=== PATIENT | female | born 1960 | race Caucasian/White ===

== ENCOUNTER 2016-04-13 09:21 | Inpatient (IN) | payer OTHER ==
--- NOTE | 2016-03-21 10:00 | HISTORY & PHYSICAL EXAMINATION ---
DATE OF ADMISSION: 04/13/2016 PROCEDURE: Left knee replacement. HISTORY OF PRESENT ILLNESS: Maria Antonia is a pleasant 56-year-old female who presents for preoperative evaluation prior to left knee replacement. She states she has been having pain in this knee for several years now which has gradually worsened and now gotten to the point it is affecting her daily activities including walking, standing, going up and down steps. She has tried oral anti-inflammatories including Aleve and ibuprofen with no relief. She has also tried Synvisc-One injection with no relief. She discussed further care with Dr. Lynch, and after discussing further treatment options, would like to proceed with a left knee replacement. PAST MEDICAL HISTORY: She denies a history of hypertension, high cholesterol, diabetes, thyroid, or bleeding or clotting disorders. ALLERGIES: SULFA CAUSES A RASH. CURRENT MEDICATIONS: 1. Ibuprofen 800 mg p.o. t.i.d. with food. 2. Glucosamine and chondroitin. PAST SURGICAL HISTORY: None. FAMILY HISTORY: Noncontributory. SOCIAL HISTORY: The patient is , lives in a 2-story home, works as a solar crew member/dog training. REVIEW OF SYSTEMS: Otherwise negative. Please see HPI for pertinent positives. PHYSICAL EXAMINATION: GENERAL: Tiago 56-year-old female in no acute distress, alert and oriented x3. She is 5 foot 5, weighs 174 pounds. VITAL SIGNS: Blood pressure is 106/74, pulse 74, O2 sats 98%. HEENT: Normocephalic, atraumatic. CARDIAC: Regular rate and rhythm. No murmurs or gallops appreciated. Resting pulse 74 beats per minute. LUNGS: Clear to auscultation without rales or wheeze bilaterally. ABDOMEN: Soft, nontender. Bowel sounds present. EXTREMITIES: Attention to her left lower extremity, she is neurovascularly intact. Calves are soft and nontender. DP pulse +2. Demonstrates good quad tone. Straight leg raise without lag. No erythema or warmth. Has mild effusion. Has positive crepitation with motion. Range of motion is 0/5/120. Overall has varus alignment. IMAGING: Reviewed of left knee showed findings consistent with degenerative joint disease including joint space narrowing, subchondral sclerosis, osteophyte as noted. She has complete loss of joint space of the medial compartment. IMPRESSION: Left knee degenerative joint disease. PLAN: Further care discussed with the patient. At this point in time, she has failed conservative measures and would like to proceed with left knee replacement. We will place on aspirin 81 mg p.o. b.i.d. for a month postop. Would like to be discharged home with home health physical therapy.
[2016-03-21 11:51] VITALS: BMI 29.0
--- NOTE | 2016-03-21 12:33 | PAT Medication Instructions ---
Service Date Mar 21, 2016. Current Home Medication List Garcinia Cambogia-Chromium (Garcinia Cambogia), 1 TAB PO QAM Tismpintoto-Fbviatwwgbd-Nyb C- (Glucosamine Chondroitin), 1,500 MG PO QAM Ibuprofen (Advil), 400 MG PO PRN Multiple Vitamin (Multi Vitamin), 1 TAB PO QAM Oxybutynin Chloride (Ditropan Xl), 1 TAB PO QAM Phentermine Hcl (Adipex P), 0.5 TAB PO QAM Probiotic Product (Probiotic), 1 TAB PO QAM Turmeric (Curcuma Longa) (Turmeric), 1,000 MG PO QAM [Calcium], 2 TAB PO QAM [Iron], 65 MG PO Q2D Medication Instructions For Your Scheduled Surgery - Hold the following medications 2 weeks prior to surgery: Turmeric (Curcuma Longa) (Turmeric), 1,000 MG PO QAM Gftikponsbt-Wkrltkoxwnr-Sgq C- (Glucosamine Chondroitin), 1,500 MG PO QAM - Check with surgeon for instructions: Ibuprofen (Advil), 400 MG PO PRN - Take the following medications the morning of surgery with a sip of water: [Iron], 65 MG PO Q2D [Calcium], 2 TAB PO QAM Probiotic Product (Probiotic), 1 TAB PO QAM Oxybutynin Chloride (Ditropan Xl), 1 TAB PO QAM Multiple Vitamin (Multi Vitamin), 1 TAB PO QAM Garcinia Cambogia-Chromium (Garcinia Cambogia), 1 TAB PO QAM Phentermine Hcl (Adipex P), 0.5 TAB PO QAM If you have any questions please call us at [phone] (Yazmin Saenz PA-C) or [phone] or [phone]
--- NOTE | 2016-03-21 13:03 | DIAGNOSTIC IMAGING REPORT ---
CHEST PREADMISSION(PA/LAT) CLINICAL HISTORY: Preoperative evaluation. COMPARISON STUDY: No previous studies for comparison. FINDINGS: Lung volumes are normal. Lungs are clear. There is no pneumothorax or pleural effusion. Cardiac size is normal. Mediastinal contours are normal. There is no evidence of pulmonary edema. There is mild S-shaped curvature of the thoracolumbar spine. IMPRESSION: No acute cardiopulmonary findings. Electronically signed by: Daniel Porter M.D. 03/21/2016 1:01 PM Dictated Date/Time: 03/21/2016 1:00 PM
[2016-03-21 13:12] LABS: BASO % 0.8 %; BASO ABS # 0.04 K/uL (0-0.2); COMPLETE YES; EOS % 0.9 %; IG% 0.4 %; LYMPH % 47.5 %; LYMPH ABS # 2.52 K/uL (1.2-3.4); MEAN CELL VOLUME 95.2 fL (80-100); MEAN CORPUSCULAR HEMOGLOBIN 32.3 pg (25-34); MEAN CORPUSCULAR HGB CONC 33.9 g/dl (32-36); MEAN PLATELET VOLUME 10.3 fL (7.4-10.4); MONO % 6.4 %; PLATELET COUNT 305 K/uL (130-400); RED BLOOD COUNT 3.99 M/uL (4.2-5.4); WHITE BLOOD COUNT 5.31 K/uL (4.8-10.8)
[2016-03-21 13:19] LABS: URINE APPEARANCE CLEAR (CLEAR); URINE BILIRUBIN NEG (NEG); URINE COLOR YELLOW; URINE NITRITE NEG (NEG); URINE PH 7.5 (4.5-7.5); URINE SPECIFIC GRAVITY 1.006 (1.000-1.030); UROBILINOGEN NEG (NEG)
[2016-03-21 13:21] LABS: MANUAL MICROSCOPIC REQUIRED? NO; REVIEW REQ? NO
[2016-03-21 13:32] LABS: ESTIMATED AVERAGE GLUCOSE 111 mg/dl; HA1C FLAG Normal (Normal)
[2016-03-21 13:36] LABS: PARTIAL THROMBOPLASTIN RATIO 1.1; PROTHROMBIN TIME (PATIENT) 10.7 SECONDS (9.0-12.0)
[2016-03-21 13:42] LABS: CALCIUM 9.4 mg/dl (8.5-10.1); CREATININE 0.59 mg/dl (0.60-1.20); POTASSIUM 4.5 mmol/L (3.5-5.1)
[~2016-04-13] VITALS: Ht 165.1 cm; Wt 79.2 kg
[2016-04-13] MEDS: TRANEXAMIC ACID INJ 1,000 MG in SODIUM CHLORIDE 0.9% 100ML 100 ML IV SCH ×2 (06:30→10:24)
--- NOTE | 2016-04-13 07:10 | History & Physical Bridge Note ---
H&P Re-Evaluation Bridge Note: I have examined the patient, reviewed the History & Physical and in the interval since the performance of the History & Physical I have noted the following changes of clinical significance: No changes noted
[~2016-04-13 09:21] MED LIST: ACETAMINOPHEN 500 MG TAB PO SCH; ALPR0.25 PO; BUPIVACAINE 0.5 % 5 MG/1 ML PF 10ML VIAL ONE; CALC-51 PO; CEFAZOLIN 1000MG/55 ML D5W 55 ML IV SCH; CeleBREX 200 MG CAP PO SCH; DEXAMETHASONE 4 MG TAB PO SCH; FAMOTIDINE 20 MG TAB PO SCH; GABAPENTIN 300 MG CAP PO SCH; GARC1TAB PO; GLUCTAB7 PO; IBUP-1050 PO; IRON PO; LACTATED RINGER'S 1000ML IV SCH; METOCLOPRAMIDE HCL 10 MG TAB PO SCH; MISCCAP80 PO; MULT-1027 PO; OXYB15TA12 PO; PHEN10CA3 PO; TURM500T PO
[2016-04-13 09:55] VITALS: BP 123/68; PULSE 77; TEMP 36.8; O2SAT 98; Ht 165.1 cm; Wt 79.2 kg
[2016-04-13] MEDS ORDERED: MIDAZOLAM HCL 1 MG/ML 2ML VIAL ONE ×2 (10:08)
[2016-04-13] MEDS ORDERED: FENTANYL CITRATE INJ 50 MCG/1 ML 2 ML VIAL ONE (10:09)
[2016-04-13] MEDS ORDERED: NURSING VERBAL MED ORDER STA (10:49)
[2016-04-13] MEDS ORDERED: VANCOMYCIN INJ 500 MG in SODIUM CHLORIDE 0.9% 250ML 250 ML IV SCH (11:00)
[2016-04-13] MEDS ORDERED: ROPIVACAINE 5MG/ML 30 ML 150 MG, BUPIVACAINE/EPINEPHR 0.5% MPF 30 ML, KETOROLAC TROMETH... INFIL SCH ×7 (12:00)
[2016-04-13] MEDS ORDERED: ONDANSETRON INJ 2 MG/ML 2 ML VIAL IV PRN ×2 (12:15→13:45)
[2016-04-13] MEDS ORDERED: ATROPINE SULFATE 0.1 MG/ML 5ML SYR IV PRN (12:15)
[2016-04-13] MEDS ORDERED: FENTANYL CITRATE INJ 50 MCG/1 ML 2 ML VIAL IV PRN (12:15)
[2016-04-13] MEDS ORDERED: EpHEDrine SULFATE INJ 50 MG/ML AMP IV PRN (12:15)
[2016-04-13] MEDS ORDERED: PROPOFOL IV EMULSION 10 MG/ML 20 ML VIAL IV ONE (12:19)
[2016-04-13] MEDS ORDERED: LIDOCAINE HCL 2% 2 ML VIAL (20MG/ML) ONE (12:19)
[2016-04-13] MEDS ORDERED: BACITRACIN 50000 UNIT VIAL IR ONE (12:33)
[2016-04-13] MEDS ORDERED: POVIDONE-IODINE OP SOLN 30 ML BTL TOP ONE (12:33)
--- NOTE | 2016-04-13 12:57 | [facility] Post Operative Brief Note ---
Immediate Operative Summary Operative Date Apr 13, 2016. Pre-Operative Diagnosis Left knee degenerative joint disease Post-Operative Diagnosis Left knee degenerative joint disease Procedure(s) Performed Left Total Knee Arthroplasty Cemented Surgeon Dr. You Lynch Residential Living Assistant Surgeon(s) Beau Hunt PA-C Estimated Blood Loss 5ML Findings severe djd lt knee Specimens A. Left knee bone and tissue Complication(s) None Disposition Recovery Room / PACU
--- NOTE | 2016-04-13 13:15 | OPERATIVE REPORT ---
DATE OF OPERATION: 04/13/2016 PREOPERATIVE DIAGNOSIS: Severe end-stage degenerative joint disease with varus alignment left knee. POSTOPERATIVE DIAGNOSIS: Same. PROCEDURE: Left total knee arthroplasty utilizing Pradhan \T\ Nephew patient matched Journey II block knee size 5 femur, 4 tibia, 12 poly, 29 oval patella. SURGEON: Dr. Lynch. CLINICAL EXERCISE PHYSIOLOGIST: Beau Hunt PA-C who was necessary for prepping, draping, retraction, and wound closure of subQ, deep fascia and skin and was necessary for the case. HISTORY OF PRESENT ILLNESS: The patient presents as a 56-year-old white female being seen and evaluated with complaints of severe ongoing DJD about her left knee. She has been nonresponsive to conservative therapy including physical therapy, anti-inflammatories, relative rest, activity modification, injections and presents for total knee arthroplasty. OPERATION AND FINDINGS: PROCEDURE: The patient was properly prepped and draped in supine position for total knee arthroplasty after identifying the appropriate surgical site. An anterior midline incision was made through the subcutaneous tissues down to the region of the extensor mechanism. A medial parapatellar incision was subsequently made. Meticulous hemostasis was obtained and performed at all times. The patella having been subluxed lateralward, medial and lateral meniscal remnants were excised. The patellar cut was then initially made and was sized to the appropriate size. After subluxing the tibia forward the appropriate meniscal fragments having been removed the distal femur was then cut first utilizing a Pradhan \T\ Nephew block. The distal femoral cuts and chamfer cuts were all made under direct visualization and the proximal tibial osteotomy cut was also made utilizing Pradhan \T\ Nephew blocks and checked with an extramedullary guide. The appropriate trial components on the femur and tibia were placed. Appropriate trial spacers were used to check flexion and extension gaps. With flexion and extension gaps being equal, the components were then subsequently after thorough irrigation and debridement lavage components were then subsequently cemented in the following order: femur, tibia and patella. Exparel was used for intraoperative anesthesia, the medial parapatellar incision was closed utilizing #1 Vicryl, subQ was closed with 2-0 Vicryl, skin was closed with skin clips. A sterile compression dressing was placed. The patient was taken to recovery room in stable condition. Due to the complex nature of the procedure, the entire surgery was performed with the operational assistance of Beau Maney, PA-C. The acute care assistant, under direct supervision, was involved in the actual performance of all aspects of the surgical procedure including hemostasis, tissue retraction and incision, instrument management, patient positioning, and wound closure. I attest to the content of the Intraoperative Record and any orders documented therein. Any exceptio ns are noted below.
[2016-04-13] MEDS ORDERED: BISACODYL 10 MG SUPP PR PRN (13:45)
[2016-04-13] MEDS ORDERED: MAGNESIUM HYDROXIDE SUSP 30 ML UDC PO PRN (13:45)
[2016-04-13] MEDS ORDERED: SOD PHOSPHATE/SOD BIPHOSPHATE ENEMA 132 ML BTL PR PRN (13:45)
[2016-04-13] MEDS ORDERED: ACETAMINOPHEN 325 MG TAB PO PRN (13:45)
[2016-04-13] MEDS ORDERED: MoRPHine SULFATE 2 MG/ML CARP IV PRN ×2 (13:45→14:45)
[2016-04-13] MEDS ORDERED: NON-FORMULARY MEDICATION ([Iron] 65 MG) PO SCH (13:45)
[2016-04-13] MEDS ORDERED: ALUMINUM/MAGNESIUM/SIMETH (MAALOX MAX) 30 ML UDC PO PRN (13:45)
--- NOTE | 2016-04-13 14:39 | DIAGNOSTIC IMAGING REPORT ---
LEFT KNEE 2 VIEWS History: Left total knee arthroplasty. Degenerative arthritis. Postop. FINDINGS: The patient is status post a left total knee arthroplasty. The hardware is intact. No fracture or dislocation. Surgical drains are in place. IMPRESSION: Left total knee arthroplasty. No evidence for hardware complication. Electronically signed by: Bishop Garza M.D. 04/13/2016 2:38 PM Dictated Date/Time: 04/13/2016 2:37 PM
[2016-04-13] MEDS ORDERED: MoRPHine SULFATE 10 MG/ML CARP/VIAL IV PRN (14:45)
[2016-04-13] MEDS ORDERED: MoRPHine SULFATE 4 MG/ML 1 ML CARP\\VIAL IV PRN (14:45)
--- NOTE | 2016-04-13 14:50 | Anesthesiology Progress Note ---
Anesthesia Post Op Note Date & Time Apr 13, 2016 at 14:50 Vital Signs Pain Intensity: 0 Vital Signs Past 12 Hours Date Time Temp Pulse Resp B/P Pulse Ox O2 Delivery O2 Flow Rate FiO2 04/13/16 14:13 100/68 04/13/16 14:10 68 16 100 04/13/16 14:10 68 16 04/13/16 14:08 99/66 04/13/16 14:05 69 13 100 04/13/16 14:05 68 13 04/13/16 14:03 110/68 04/13/16 14:00 71 19 04/13/16 14:00 70 19 100 04/13/16 13:58 106/67 04/13/16 13:55 69 11 04/13/16 13:55 68 11 100 04/13/16 13:53 98/67 04/13/16 13:50 72 14 04/13/16 13:50 73 14 100 04/13/16 13:48 107/64 04/13/16 13:45 84 19 04/13/16 13:45 88 19 100 04/13/16 13:43 107/70 04/13/16 13:40 84 11 99 04/13/16 13:40 82 11 04/13/16 13:38 112/67 04/13/16 13:35 76 17 99 04/13/16 13:35 75 17 04/13/16 13:33 111/71 04/13/16 13:31 117/72 04/13/16 13:30 36.4 83 16 117/72 96 Nasal Cannula 3 04/13/16 09:55 36.8 77 20 123/68 98 Room Air Notes Mental Status: alert / awake / arousable, participated in evaluation Pt Amnestic to Procedure: Yes Nausea / Vomiting: adequately controlled Pain: adequately controlled Airway Patency, RR, SpO2: stable & adequate BP & HR: stable & adequate Hydration State: stable & adequate Neuraxial Anesthesia: was administered, sensory block is resolving Anesthetic Complications: no major complications apparent
[2016-04-13 15:30] VITALS: BP_SYST 118; BP_SYST 99; BP_DIAS 64; BP_DIAS 75; PULSE 76; PULSE 82; TEMP 36.4; TEMP 36.6; O2SAT 97
[2016-04-13 16:03] VITALS: BP 108/61; PULSE 70; TEMP 36.5; O2SAT 98
[2016-04-13 16:31] VITALS: BP 93/60; PULSE 78; TEMP 36.4; O2SAT 98
[2016-04-13] MEDS: D5W AND 1/2NSS + 20MEQ KCL 1,000 ML IV SCH (16:53)
[2016-04-13] MEDS: FERROUS GLUCONATE 324 MG TAB PO SCH (17:33)
[2016-04-13 19:39] VITALS: BP 98/63; PULSE 81; TEMP 36.5; O2SAT 95
[2016-04-13] MEDS: SENNA 8.6 MG TAB PO SCH (20:57)
[2016-04-13] MEDS: ASPIRIN 81 MG ECTAB PO SCH (20:58)
[2016-04-13] MEDS: OXYCODONE HCL 10 MG TABCR (OXYCONTIN) PO SCH (20:58)
[2016-04-13] MEDS: ALPRAZOLAM 0.25 MG TAB PO SCH (20:58)
[2016-04-13] MEDS: DOCUSATE SODIUM 100 MG CAP PO SCH (20:59)
[2016-04-13 22:43] VITALS: BP 98/65; PULSE 77; TEMP 36.6; O2SAT 94
[2016-04-13] MEDS ORDERED: VANCOMYCIN INJ 1,200 MG in SODIUM CHLORIDE 0.9% 250ML 250 ML IV ONE (23:00)
[2016-04-14] VITALS (11 sets, daily range): BP systolic 85–107; BP diastolic 52–71; PULSE 73–79; TEMP 36.6–37; O2SAT 94–97
[2016-04-14] MEDS: OXYCODONE HCL IR 5 MG TAB (IMMEDIATE RELEASE) PO PRN ×3 (02:38→12:40)
[2016-04-14] MEDS: D5W AND 1/2NSS + 20MEQ KCL 1,000 ML IV SCH ×2 (02:38→12:40)
[2016-04-14 07:39] LABS: HEMATOCRIT 31.2 % (37-47); MEAN CELL VOLUME 95.4 fL (80-100); MEAN CORPUSCULAR HEMOGLOBIN 31.5 pg (25-34); MEAN PLATELET VOLUME 9.9 fL (7.4-10.4); PLATELET COUNT 225 K/uL (130-400); RED BLOOD COUNT 3.27 M/uL (4.2-5.4)
--- NOTE | 2016-04-14 07:51 | Orthopedic Progress Note ---
Orthopedic Progress Note Date of Service Apr 14, 2016. Subjective Post OP Day: 1 Reports: feeling well, Denies: SOB, calf pain, chest pain, light headedness, nausea / vomiting Objective calves soft nontender, N/V intact, dressing C/D/I, A&O x3, toes mobile, hemovac drainage (275ml latest shift) Date Time Temp Pulse Resp B/P Pulse Ox O2 Delivery O2 Flow Rate FiO2 04/14/16 03:20 94/53 04/14/16 03:13 37.0 78 16 85/52 95 Room Air 04/13/16 23:47 Room Air 04/13/16 22:43 36.6 77 16 98/65 94 Room Air 04/13/16 19:39 36.5 81 18 98/63 95 Room Air 04/13/16 16:31 36.4 78 18 93/60 98 Nasal Cannula 3.0 04/13/16 16:03 36.5 70 16 108/61 98 Nasal Cannula 3.0 04/13/16 15:30 97 Nasal Cannula 3.0 04/13/16 15:30 97 Nasal Cannula 3.0 04/13/16 15:30 36.4 76 16 99/64 97 Room Air 04/13/16 15:30 36.6 82 16 118/75 97 Nasal Cannula 3.0 04/13/16 15:14 80 04/13/16 15:14 79 16 100 04/13/16 15:13 110/66 04/13/16 15:09 79 16 04/13/16 15:09 77 16 100 04/13/16 15:08 107/71 04/13/16 15:04 74 11 04/13/16 15:04 75 11 100 04/13/16 15:03 106/63 04/13/16 14:59 69 13 100 04/13/16 14:59 70 13 04/13/16 14:58 105/64 04/13/16 14:54 68 13 04/13/16 14:54 67 13 100 04/13/16 14:53 105/61 04/13/16 14:49 70 17 100 04/13/16 14:49 67 17 04/13/16 14:48 104/67 04/13/16 14:44 71 14 04/13/16 14:44 74 14 100 04/13/16 14:43 93/74 04/13/16 14:39 67 16 04/13/16 14:39 66 16 100 04/13/16 14:38 108/69 04/13/16 14:34 66 16 04/13/16 14:34 67 16 100 04/13/16 14:33 104/68 04/13/16 14:29 67 16 100 04/13/16 14:29 66 16 04/13/16 14:28 106/69 04/13/16 14:24 68 18 100 04/13/16 14:24 69 18 04/13/16 14:23 117/69 04/13/16 14:19 68 13 100 04/13/16 14:19 69 13 04/13/16 14:18 100/66 04/13/16 14:14 65 15 100 04/13/16 14:14 65 15 04/13/16 14:13 100/68 04/13/16 14:10 68 16 100 04/13/16 14:10 68 16 04/13/16 14:08 99/66 04/13/16 14:05 69 13 100 04/13/16 14:05 68 13 04/13/16 14:03 110/68 04/13/16 14:00 71 19 04/13/16 14:00 70 19 100 04/13/16 13:58 106/67 04/13/16 13:55 69 11 04/13/16 13:55 68 11 100 04/13/16 13:53 98/67 04/13/16 13:50 72 14 04/13/16 13:50 73 14 100 04/13/16 13:48 107/64 04/13/16 13:45 84 19 04/13/16 13:45 88 19 100 04/13/16 13:43 107/70 04/13/16 13:40 84 11 99 04/13/16 13:40 82 11 04/13/16 13:38 112/67 04/13/16 13:35 76 17 99 04/13/16 13:35 75 17 04/13/16 13:33 111/71 04/13/16 13:31 117/72 04/13/16 13:30 36.4 83 16 117/72 96 Nasal Cannula 3 04/13/16 09:55 36.8 77 20 123/68 98 Room Air Laboratory Results 24 Hours: Test 04/14/16 07:12 04/14/16 07:21 Hematocrit 31.2 % Hemoglobin 10.3 g/dL Assessment & Plan Assessment: POD 1 s/p Right TKA Plan: PT/OT Planning for home with Inhouse Planning Pain Management: Oxycontin, Morphine, Oxy IR DVT Prophylaxis: TEDs, SCDs, ASA Discharge Planning Discharge Planning: home with home health Pain Management: Oxycontin, Oxy IR DVT Prophylaxis: TEDs, ASA Therapy: Physical Therapy
[2016-04-14] MEDS: PANTOprazole SOD 40 MG TAB PO SCH (08:04)
[2016-04-14] MEDS: OXYCODONE HCL 10 MG TABCR (OXYCONTIN) PO SCH (08:04)
[2016-04-14] MEDS: DOCUSATE SODIUM 100 MG CAP PO SCH ×2 (08:04→20:43)
[2016-04-14] MEDS: LACTOBACILLUS ACIDOPHILUS (FLORANEX) TAB PO SCH (08:05)
[2016-04-14] MEDS: ASPIRIN 81 MG ECTAB PO SCH ×2 (08:05→20:43)
[2016-04-14] MEDS: MULTIVITAMIN TAB PO SCH (08:05)
[2016-04-14] MEDS: OXYBUTYNIN CHLORIDE 5 MG TABCR PO SCH (08:05)
[2016-04-14] MEDS: FERROUS GLUCONATE 324 MG TAB PO SCH ×3 (08:05→17:45)
[2016-04-14] MEDS: CALCIUM CARBONATE 1250MG TAB PO SCH (08:06)
[2016-04-14 08:11] LABS: BUN/CREATININE RATIO 16.4 (10-20); CALCIUM 7.9 mg/dl (8.5-10.1); CREATININE 0.67 mg/dl (0.60-1.20); POTASSIUM 4.4 mmol/L (3.5-5.1)
--- NOTE | 2016-04-14 09:41 | Anesthesiology Progress Note ---
Anesthesia Post Op Note Date & Time Apr 14, 2016 at 09:40 Vital Signs Pain Intensity: 7.0 Vital Signs Past 12 Hours Date Time Temp Pulse Resp B/P Pulse Ox O2 Delivery O2 Flow Rate FiO2 04/14/16 03:20 94/53 04/14/16 03:13 37.0 78 16 85/52 95 Room Air 04/13/16 23:47 Room Air 04/13/16 22:43 36.6 77 16 98/65 94 Room Air Notes Mental Status: alert / awake / arousable, participated in evaluation Pt Amnestic to Procedure: Yes Nausea / Vomiting: adequately controlled Pain: adequately controlled Airway Patency, RR, SpO2: stable & adequate BP & HR: stable & adequate Hydration State: stable & adequate Neuraxial Anesthesia: sensory block resolved Anesthetic Complications: no major complications apparent
--- NOTE | 2016-04-14 14:50 | Discharge Instructions ---
Discharge Instructions Admission Reason for Admission: Left Knee Osteoarthritis Discharge Discharge Diagnosis / Problem: Left Knee Djd Discharge Goals Goal(s): Decrease discomfort, Improve function Activity Recommendations Activity Limitations: per Instructions/Follow-up section Weightbearing Status: Left weightbearing (as tolerated) . Instructions / Follow-Up Instructions / Follow-Up ACTIVITY RECOMMENDATIONS: SELF CARE INSTRUCTIONS AFTER TOTAL KNEE REPLACEMENT A. You may need to continue a physical therapy program after discharge from the hospital. There are several options available to you. Your doctor will assist you in selecting the best one for you. 1. An out-patient facility 2 to 3 times a week for therapy or home therapy. 2. Continue working on all exercises taught to you in the hospital. Your goals should be to increase bending of your knee to 90 degrees and beyond and to fully straighten your knee. B. You may progress at your own pace from walking with a walker or crutches to a cane; then to no assistive devices. C. Make walking a part of your daily routine. Be up as much as comfortable with rest periods throughout the day. Rest with leg elevation is very important. Use the ice wrap frequently for the first 3-4 weeks. D. There are no restrictions on activities. You may ride in a car, shop, participate in solo musician and all social activities. E. Wear the long elastic stockings (YVROSE hose) 20 hours a day for 2 weeks after surgery. They can be removed several times a day for laundering and for a bath. F. You may shower, no tub baths until cleared by your doctor. SPECIAL CARE INSTRUCTIONS: VERY IMPORTANT TO READ AND REVIEW A. There are a few signs you need to watch for after you are home. Call [facility] if you notice any of the followin. Increased severe knee pain. Some pain is expected especially when you exercise. 2. Increased swelling in your leg or knee; pain or swelling of the calf muscle in either lower leg. 3. Any fluid drainage from the incision. 4. Shortness of breath or chest pain. B. Please call [facility] at if you have any concerns or questions about your operation or recovery. The doctor or his nurse will return your call promptly. C. You must take antibiotics before dental work, bladder, bowel or other surgery. Your doctor will provide you with a permanent care to carry describing this precaution. IMPORTANT: * REMEMBER TO TAKE ASPIRIN, 81 MG, TWICE DAILY FOR 4 WEEKS UNLESS OTHERWISE DIRECTED. THIS IS YOUR BLOOD THINNER. * HIGH RISK PATIENTS MAY BE PRESCRIBED A STRONGER BLOOD THINNER. THIS WILL BE PROVIDED AT DISCHARGE. * CALL IF INCREASED PAIN, REDNESS, DRAINAGE OR FEVER GREATER THAT 101. * WEAR YVROSE HOSE 20 HOURS PER DAY FOR 2 WEEKS. * DERMABOND Prineo- This is a mesh tape dressing that is covered with glue. It should remain in place until the incision is properly healed, usually 10-14 days. This dressing is designed to naturally slough off. You may trim the excess mesh tape as it peels off. Incision may be briefly wet in a shower. Dry immediately by blotting with a clean, dry towel. Do not bath or swim until instructed by your doctor. Do not scratch, rub, or pick at the dressing. Do not apply any topical ointments or lotions until dressing is completely removed and/or instructed by your doctor. There may be a small piece of suture material at one end of your incision. Do not pull or trim this. If it is bothersome or catching on clothing, you may cover it with a band-aid. . FOLLOW UP VISIT: If appointment is not already scheduled: Please call [facility] to make a follow-up appointment for 2 weeks after your surgery at . Current Hospital Diet Patient's current hospital diet: Regular Diet Discharge Diet Recommended Diet: Regular Diet Procedures Procedures Performed: Left Total Knee Arthroplasty Cemented Pending Studies Studies pending at discharge: no Laboratory Results Hemoglobin A1c Test 03/21/16 12:38 Range/Units Estimated Average Glucose 111 mg/dl Hemoglobin A1c 5.5 4.5-5.6 % Medical Emergencies . Who to Call and When: Medical Emergencies: If at any time you feel your situation is an emergency, please call 911 immediately. . Non-Emergent Contact Non-Emergency issues call your: Surgeon Call Non-Emergent contact if: temperature is above 101, your pain is not controlled, your pain is worsening, wound has increased drainage, wound has increased redness . "Provider Documentation" section prepared by Aditya Eldridge. VTE Core Measure Inpt VTE Proph given/why not?: Other Anticoagulation, T.E.D. Stockings, SCD's
[2016-04-14] MEDS ORDERED: KETOROLAC TROMETHAMINE 30 MG/ML VIAL IV PRN (15:30)
[2016-04-14] MEDS ORDERED: HYDROCODONE/ACETAMOPHEN 5/325MG TAB PO PRN (15:30)
[2016-04-14] MEDS ORDERED: TRAMADOL HCL 50 MG TAB PO PRN (15:30)
[2016-04-14] MEDS: SENNA 8.6 MG TAB PO SCH (20:43)
[2016-04-14] MEDS: ALPRAZOLAM 0.25 MG TAB PO SCH (20:43)
[2016-04-15] MEDS: OXYCODONE HCL IR 5 MG TAB (IMMEDIATE RELEASE) PO PRN ×4 (00:30→13:39)
[2016-04-15 07:27] VITALS: BP 111/74; PULSE 78; TEMP 37; O2SAT 97
--- NOTE | 2016-04-15 07:27 | Orthopedic Progress Note ---
Orthopedic Progress Note Date of Service Apr 15, 2016. Subjective Post OP Day: 2 Denies: SOB, calf pain, chest pain, light headedness, nausea / vomiting Additional Notes: No more nausea since yesterday. Pt states she did have Oxycodone last night and tolerated it. Feels that she had a lot of medications at the same time yesterday morning on a pseudo empty stomach which contributed to her nausea. Some pain this AM. No other complaints. Objective calves soft nontender, N/V intact, incision C/D/I, A&O x3, toes mobile Date Time Temp Pulse Resp B/P Pulse Ox O2 Delivery O2 Flow Rate FiO2 04/15/16 00:15 Room Air 04/14/16 23:34 36.8 79 16 101/65 95 Room Air 04/14/16 19:40 Room Air 04/14/16 15:06 36.8 73 18 104/60 97 Room Air 04/14/16 12:36 100/64 04/14/16 11:56 36.8 74 14 99/61 97 Room Air 04/14/16 10:15 107/71 04/14/16 10:10 36.6 77 14 89/58 94 Room Air 04/14/16 10:07 96 Room Air 04/14/16 09:49 36.7 78 14 88/57 96 Room Air 04/14/16 08:00 Room Air Assessment & Plan Assessment: POD 2 s/p Right TKA Plan: We will plan for dc home today if pain is controlled and no more nausea. PT/OT Planning for home with HH Inhouse Planning Pain Management: Toradol, Morphine, Oxy IR DVT Prophylaxis: TEDs, SCDs, ASA Discharge Planning Discharge Planning: home with home health Pain Management: Oxycontin, Oxy IR DVT Prophylaxis: TEDs, ASA Therapy: Physical Therapy
[2016-04-15] MEDS ORDERED: ASPEC81 PO (07:31)
[2016-04-15] MEDS ORDERED: ACET-1138 PO (07:31)
[2016-04-15] MEDS ORDERED: SNK PO (07:31)
[2016-04-15] MEDS ORDERED: RXC5 PO (07:31)
[2016-04-15] MEDS ORDERED: OXYSR10 PO (07:31)
[2016-04-15] MEDS ORDERED: ONDA8TAB6 PO (07:35)
--- NOTE | 2016-04-15 07:48 | Discharge Summary ---
Orthopedic Discharge Summary Admission Date/Reason Apr 13, 2016 at 09:35 Left Knee Osteoarthritis. Discharge Date/Disposition Apr 15, 2016 Home with services Diagnosis Principal Diagnosis: Left TKA Procedure(s) Performed Left TKA Consultations NONE Medication Reconciliation New Medications: Acetaminophen (Tylenol Extra Strength) 500 Mg Tab 2 TABS PO Q8H for 30 Days Ondansetron Hcl (Zofran) 8 Mg Tab 8 MG PO TID PRN for Nausea, #20 TAB Oxycodone HCl (Oxycontin) 10 Mg Tabcr 1 TAB PO BID, #20 Aspirin (Aspirin EC Low Dose) 81 Mg Ectab 81 MG PO BID for 30 Days Oxycodone HCl (Oxycodone HCl) 5 Mg Tab 5-10 MG PO Q4H PRN for Pain, #60 TAB Senna (Senna Lax) 8.6 Mg Tab 17.2 MG PO HS, #30 TAB Hold for loose stools Continued Medications: Alprazolam (Xanax) 0.25 Mg Tab 0.25 MG PO HS, TAB Garcinia Cambogia-Chromium (Garcinia Cambogia) 1 Tab Tab 1 TAB PO QAM 500 MG Ncpwkgkmvhy-Wzxlurxopoj-Rtt C- (Glucosamine Chondroitin) 1 Tab Tab 1500 MG PO QAM Multiple Vitamin (Multi Vitamin) 1 Tab Tab 1 TAB PO QAM Oxybutynin Chloride (Ditropan Xl) 15 Mg Tab 1 TAB PO QAM for 90 Days, #90 TAB 3 Refills Phentermine Hcl (Adipex P) 37.5 Mg Cap 0.5 TAB PO QAM for 30 Days, CAP Probiotic Product (Probiotic) 1 Cap Cap 1 TAB PO QAM Turmeric (Curcuma Longa) (Turmeric) 500 Mg Tab 1000 MG PO QAM [Calcium] () 2 TAB PO QAM GUMMIES [Iron] () 65 MG PO Q2D AM Discontinued Medications: Ibuprofen (Advil) 200 Mg Tab 400 MG PO PRN, TAB Admission Physical Exam As per Admitting History & Physical. Hospital Course Patient was a same day admission after undergoing a successful let TKA. she tolerated the procedure well. Post-operatively, her activity was progressed and well tolerated. Please refer to daily progress notes and PT notes for complete details. After exam on 04/15/16, patient felt to be stable for discharge []. Patient will f/u in the office in 2 weeks for further evaluation including x- rays and incision check, sooner if having any issues or concerns. Below are pertinent labs/studies during their hospital stay: Last Resulted CBC 04/14/16 07:21 Last Resulted BMP 04/14/16 07:21 Last Vital Signs Documentation Date Time Temp Pulse Resp B/P Pulse Ox O2 Delivery O2 Flow Rate FiO2 04/15/16 07:27 37.0 78 18 111/74 97 Room Air 04/13/16 16:31 3.0 Discharge Instructions ACTIVITY RECOMMENDATIONS: SELF CARE INSTRUCTIONS AFTER TOTAL KNEE REPLACEMENT A. You may need to continue a physical therapy program after discharge from the hospital. There are several options available to you. Your doctor will assist you in selecting the best one for you. 1. An out-patient facility 2 to 3 times a week for therapy or home therapy. 2. Continue working on all exercises taught to you in the hospital. Your goals should be to increase bending of your knee to 90 degrees and beyond and to fully straighten your knee. B. You may progress at your own pace from walking with a walker or crutches to a cane; then to no assistive devices. C. Make walking a part of your daily routine. Be up as much as comfortable with rest periods throughout the day. Rest with leg elevation is very important. Use the ice wrap frequently for the first 3-4 weeks. D. There are no restrictions on activities. You may ride in a car, shop, participate in parts runner and all social activities. E. Wear the long elastic stockings (YVROSE hose) 20 hours a day for 2 weeks after surgery. They can be removed several times a day for laundering and for a bath. F. You may shower, no tub baths until cleared by your doctor. SPECIAL CARE INSTRUCTIONS: VERY IMPORTANT TO READ AND REVIEW A. There are a few signs you need to watch for after you are home. Call [facility] if you notice any of the followin. Increased severe knee pain. Some pain is expected especially when you exercise. 2. Increased swelling in your leg or knee; pain or swelling of the calf muscle in either lower leg. 3. Any fluid drainage from the incision. 4. Shortness of breath or chest pain. B. Please call [facility] at if you have any concerns or questions about your operation or recovery. The doctor or his nurse will return your call promptly. C. You must take antibiotics before dental work, bladder, bowel or other surgery. Your doctor will provide you with a permanent care to carry describing this precaution. IMPORTANT: * REMEMBER TO TAKE ASPIRIN, 81 MG, TWICE DAILY FOR 4 WEEKS UNLESS OTHERWISE DIRECTED. THIS IS YOUR BLOOD THINNER. * HIGH RISK PATIENTS MAY BE PRESCRIBED A STRONGER BLOOD THINNER. THIS WILL BE PROVIDED AT DISCHARGE. * CALL IF INCREASED PAIN, REDNESS, DRAINAGE OR FEVER GREATER THAT 101. * WEAR YVROSE HOSE 20 HOURS PER DAY FOR 2 WEEKS. * DERMABOND Prineo- This is a mesh tape dressing that is covered with glue. It should remain in place until the incision is properly healed, usually 10-14 days. This dressing is designed to naturally slough off. You may trim the excess mesh tape as it peels off. Incision may be briefly wet in a shower. Dry immediately by blotting with a clean, dry towel. Do not bath or swim until instructed by your doctor. Do not scratch, rub, or pick at the dressing. Do not apply any topical ointments or lotions until dressing is completely removed and/or instructed by your doctor. There may be a small piece of suture material at one end of your incision. Do not pull or trim this. If it is bothersome or catching on clothing, you may cover it with a band-aid. FOLLOW UP VISIT: If appointment is not already scheduled: Please call [facility] to make a follow-up appointment for 2 weeks after your surgery at .
[2016-04-15] MEDS: CALCIUM CARBONATE 1250MG TAB PO SCH (09:00)
[2016-04-15] MEDS: DOCUSATE SODIUM 100 MG CAP PO SCH (09:00)
[2016-04-15] MEDS: MULTIVITAMIN TAB PO SCH (09:00)
[2016-04-15] MEDS: FERROUS GLUCONATE 324 MG TAB PO SCH ×2 (09:02→12:30)
[2016-04-15] MEDS: LACTOBACILLUS ACIDOPHILUS (FLORANEX) TAB PO SCH (09:03)
[2016-04-15] MEDS: PANTOprazole SOD 40 MG TAB PO SCH (09:03)
[2016-04-15] MEDS: OXYBUTYNIN CHLORIDE 5 MG TABCR PO SCH (09:04)
[2016-04-15] MEDS: ASPIRIN 81 MG ECTAB PO SCH (09:46)
[2016-04-15 10:36] VITALS: BP 111/74; PULSE 78; TEMP 37; O2SAT 97
== END 2016-04-15 13:57 | disposition home health service (06) | DRG 470 ==
LOC: ENRESERVTM → ENRESERVDT → C.ACU 09:21 → C.MSN 09:35
PROVIDERS: ADMIT Orthopaedic Surgery; ATTEND Orthopaedic Surgery
PROC: 0SRD0J9 Replacement of Left Knee Joint with Synthetic Substitute, Cemented, Open Approach (ICD-10-PCS; principal; 2016-04-13 11:45)
DX: M17.12 Unilateral primary osteoarthritis, left knee (principal); Z88.0 Allergy status to penicillin; Z79.1 Long term (current) use of non-steroidal anti-inflammatories (NSAID); Z79.899 Other long term (current) drug therapy

== ENCOUNTER 2017-03-15 05:25 | Inpatient (IN) | payer OTHER ==
[2017-02-16 14:29] VITALS: BMI 29.0
--- NOTE | 2017-02-16 15:21 | PAT Medication Instructions ---
Service Date Feb 16, 2017. Current Home Medication List Alprazolam (Xanax), 0.25 MG PO UD PRN for Sleep Fesoterodine Fumarate (Toviaz), 1 TAB PO QAM Ibuprofen (Motrin), 800 MG PO UD PRN for Pain Saccharomyces Boulardii (Florastor), 1 CAP PO QAM Medication Instructions For Your Scheduled Surgery - Hold the following medications 1 week prior to surgery: Ibuprofen (Motrin), 800 MG PO UD PRN for Pain - Hold the following medications the morning of surgery: Saccharomyces Boulardii (Florastor), 1 CAP PO QAM - Take the following medications the morning of surgery with a sip of water: Fesoterodine Fumarate (Toviaz), 1 TAB PO QAM - Take the following medications as scheduled the night before surgery: Alprazolam (Xanax), 0.25 MG PO UD PRN for Sleep If you have any questions please call us at [phone] or [phone] or [phone]
[2017-02-16 15:47] LABS: BASO % 0.6 %; BASO ABS # 0.03 K/uL (0-0.2); EOS % 0.8 %; EOS ABS # 0.04 K/uL (0-0.5); HEMATOCRIT 38.2 % (37-47); HEMOGLOBIN 13.1 g/dL (12.0-16.0); LYMPH % 39.2 %; LYMPH ABS # 1.97 K/uL (1.2-3.4); MEAN CELL VOLUME 94.3 fL (80-100); MEAN CORPUSCULAR HEMOGLOBIN 32.3 pg (25-34); MEAN CORPUSCULAR HGB CONC 34.3 g/dl (32-36); MEAN PLATELET VOLUME 9.9 fL (7.4-10.4); MONO ABS # 0.35 K/uL (0.11-0.59); NEUT % 52.4 %; NEUT ABS # 2.64 K/uL (1.4-6.5); PLATELET COUNT 260 K/uL (130-400); RED CELL DISTRIBUTION WIDTH SD 48.4 fL (36.4-46.3); WHITE BLOOD COUNT 5.03 K/uL (4.8-10.8)
[2017-02-16 15:54] LABS: CALCIUM 9.1 mg/dl (8.5-10.1); CREATININE 0.75 mg/dl (0.60-1.20); POTASSIUM 4.1 mmol/L (3.5-5.1)
--- NOTE | 2017-02-17 13:45 | HISTORY & PHYSICAL EXAMINATION ---
DATE OF ADMISSION: 03/15/2017 CHIEF COMPLAINT: Right knee pain. HISTORY OF PRESENT ILLNESS: Maria Antonia is a 57-year-old female with a multiple year history of right knee pain. The patient rates her pain at 10/10. She has pain with her daily activities. She has limited standing and walking tolerance. Pain is worse with weightbearing. The patient has had injections and anti-inflammatories. She has also done physical therapy and knee arthroscopy. She continues to have limiting pain and is now scheduled for right knee replacement. PAST MEDICAL HISTORY: Mitral valve prolapse. She denies heart disease, diabetes or DVT. PAST SURGICAL HISTORY: Left TKA in 2017, tubal ligation and hammertoe repair. SOCIAL HISTORY: The patient drinks 5 drinks per week. She denies tobacco use. She lives in a 2-willy home and works as dog education trainer. FAMILY HISTORY: Positive for TIA in her mother and grandmother. MEDICATIONS: Glucosamine chondroitin and ibuprofen 800 mg. ALLERGIES: SULFA, PENICILLIN AND CLINDAMYCIN. REVIEW OF SYSTEMS: See HPI. Ten other systems reviewed. All negative. PHYSICAL EXAMINATION: VITAL SIGNS: Height 5 feet 5 inches and weight 180 pounds. GENERAL: This is a well-developed and well-nourished female who is alert and oriented x3. Mood and affect are appropriate. HEENT: Normocephalic and atraumatic. Mucous membranes are moist and intact. NECK: Supple without lymphadenopathy. HEART: Regular rate and rhythm without murmurs, rubs or gallops. LUNGS: Clear to auscultation without wheezes or rhonchi. ABDOMEN: Soft and nontender. Bowel sounds are equal and active. EXTREMITIES: No ecchymosis, redness or warmth. She has neutral alignment. Range of motion is from 0-115 degrees. She has mild effusion. She has +1 to 2 medial laxity. She is neurovascularly intact. X-RAY EXAMINATION: AP and lateral views show joint space narrowing and osteophyte formation. IMPRESSION: Degenerative joint disease, right knee. PLAN: The patient will be admitted for a right total knee arthroplasty. We will plan on aspirin for DVT prophylaxis. The patient would like to try Celebrex upon discharge despite her SULFA ALLERGY.
[2017-03-15] VITALS (9 sets, daily range): BP systolic 87–124; BP diastolic 55–76; PULSE 69–87; TEMP 36.3–36.5; O2SAT 93–100; Ht 165.1 cm; Wt 81.6 kg
[~2017-03-15] VITALS: Ht 165.1 cm; Wt 81.6 kg
[~2017-03-15 05:25] MED LIST changes: -ACETAMINOPHEN 500 MG TAB PO SCH; +ALPR-411 PO; -ALPR0.25 PO; -BUPIVACAINE 0.5 % 5 MG/1 ML PF 10ML VIAL ONE; -CALC-51 PO; -CEFAZOLIN 1000MG/55 ML D5W 55 ML IV SCH; -CeleBREX 200 MG CAP PO SCH; -DEXAMETHASONE 4 MG TAB PO SCH; -FAMOTIDINE 20 MG TAB PO SCH; +FESO8TAB PO; -GABAPENTIN 300 MG CAP PO SCH; -GARC1TAB PO; -GLUCTAB7 PO; -IBUP-1050 PO; +IBUP-1428 PO; -IRON PO; -LACTATED RINGER'S 1000ML IV SCH; -METOCLOPRAMIDE HCL 10 MG TAB PO SCH; -MISCCAP80 PO; -MULT-1027 PO; -OXYB15TA12 PO; -PHEN10CA3 PO; +SACC250C3 PO; -TURM500T PO
[2017-03-15] MEDS ORDERED: ACETAMINOPHEN 500 MG TAB PO SCH (06:00)
[2017-03-15] MEDS ORDERED: ROPIVACAINE 5MG/ML 30 ML 150 MG, BUPIVACAINE 0.5% MPF INJ 30 ML, EpINEphrine HCL INJ 0.... INFIL SCH ×8 (06:00)
[2017-03-15] MEDS ORDERED: VANCOMYCIN INJ 1,000 MG in SODIUM CHLORIDE 0.9% 250ML 250 ML IV SCH (06:00)
[2017-03-15] MEDS ORDERED: FAMOTIDINE 20 MG TAB PO SCH (06:00)
[2017-03-15] MEDS ORDERED: DEXAMETHASONE 4 MG TAB PO SCH (06:00)
[2017-03-15] MEDS ORDERED: CEFAZOLIN 2000MG IV PUSH 10 ML IV SCH (06:00)
[2017-03-15] MEDS ORDERED: LACTATED RINGER'S 1000ML IV SCH (06:00)
[2017-03-15] MEDS ORDERED: LACTATED RINGER'S 1000ML 500 ML IV SCH (06:00)
[2017-03-15] MEDS ORDERED: CeleBREX 200 MG CAP PO SCH ×2 (06:00)
[2017-03-15] MEDS ORDERED: GABAPENTIN 300 MG CAP PO SCH (06:00)
[2017-03-15] MEDS ORDERED: LACTATED RINGER'S 1000ML 1,000 ML IV SCH (06:00)
[2017-03-15] MEDS: TRANEXAMIC ACID INJ 1,000 MG in SYRINGE 0 ML IV SCH ×2 (06:30→08:05)
[2017-03-15] MEDS ORDERED: ACET-1256 PO (06:38)
[2017-03-15] MEDS ORDERED: LIDOCAINE HCL 2% 2 ML VIAL (20MG/ML) ONE (07:06)
[2017-03-15] MEDS ORDERED: FENTANYL CITRATE INJ 50 MCG/1 ML 2 ML VIAL ONE (07:06)
[2017-03-15] MEDS ORDERED: PROPOFOL IV EMULSION 10 MG/ML 20 ML VIAL IV ONE (07:06)
[2017-03-15] MEDS ORDERED: EpHEDrine SULFATE 50MG/5ML SYR ONE (07:06)
[2017-03-15] MEDS ORDERED: PHENYLEPHRINE 100MCG/ML 5ML SYR ONE (07:06)
[2017-03-15] MEDS ORDERED: MIDAZOLAM HCL 1 MG/ML 2ML VIAL ONE (07:07)
[2017-03-15] MEDS ORDERED: VANCOMYCIN INJ 1,250 MG in SODIUM CHLORIDE 0.9% 250ML 250 ML IV ONE (07:30)
[2017-03-15] MEDS ORDERED: BUPIVACAINE 0.25% 30 ML VIAL ONE (07:44)
[2017-03-15] MEDS ORDERED: BUPIVACAINE 0.5 % 5 MG/1 ML PF 10ML VIAL ONE (07:44)
[2017-03-15] MEDS ORDERED: POVIDONE-IODINE OP SOLN 30 ML BTL ONE (07:51)
[2017-03-15] MEDS ORDERED: ORTHO JOINT ANESTHETIC ONE (07:51)
[2017-03-15] MEDS ORDERED: BACITRACIN 50000 UNIT VIAL ONE (08:03)
[2017-03-15] MEDS ORDERED: ATROPINE SULFATE 0.1 MG/ML 5ML SYR IV PRN (08:45)
[2017-03-15] MEDS ORDERED: EpHEDrine SULFATE INJ 50 MG/ML AMP IV PRN (08:45)
[2017-03-15] MEDS ORDERED: FENTANYL CITRATE INJ 50 MCG/1 ML 2 ML VIAL IV PRN (08:45)
[2017-03-15] MEDS ORDERED: ONDANSETRON INJ 2 MG/ML 2 ML VIAL IV PRN (08:45)
--- NOTE | 2017-03-15 09:33 | [facility] Operative Report ---
Operative Report Operative Date Mar 15, 2017. Pre-Operative Diagnosis Severe DJD right knee Post-Operative Diagnosis Severe DJD right knee Procedure(s) Performed Right total knee arthroplasty utilizing Pradhan & Nephew journey 2 patient matched total knee arthroplasty 6 femur 5 tibia 13 Tala 32 oval patella Surgeon Syed Coning Machine Operator Surgeon(s) Patrick Estimated Blood Loss 5 mL Findings Patient presents with severe end-stage tricompartmental degenerative joint disease right knee arthroplasty conservative therapy for total knee arthroplasty x-rays reveal subchondral cystic changes sclerosus osteophytes on the bone changes varus alignment Complication(s) None Disposition Recovery Room / PACU Indications Patient presents with severe end-stage tricompartmental degenerative joint disease nonresponsive to to conservative therapy subchondral cystic change osteophytes varus alignment sclerosis Description of Procedure After proper prepping and draping of the Right lower extremity anterior midline incision was made over the region of the extensor extensor mechanism after meticulous hemostasis was obtained and maintained in subcutaneous tissues a medial parapatellar incision was made The patella was subluxed lateralward the medial lateral gutter were cleaned from any hypertrophic synovitis and scar tissue of the distal femoral block was placed and the distal femoral osteotomy cut was made subsequently the chamfers anterior and posterior osteotomy cuts were made utilizing the 4-in-1 block the tibia was subsequently subluxed anteriorward medial and ateral meniscal remnants were excised in their entirety remnants of the anterior and posterior cruciate ligaments were excised in their entirety excellent exposure of the proximal tibia was obtained the tibial osteotomy guide was placed on the proximal tibial osteotomy cut was made once again the knee was irrigated with copious amounts of sterile saline solution the patella was subsequently everted lateralward thickened scar tissue around the patella was removed the patella was subsequently cut utilizing a freehand technique and was drilled prepared for final preparation and placement of patella socially flexion-extension gaps were checked and the equal and symmetric trials were placed to the appropriate femoral and tibial trials with poly-spacer being placed for equal flexion and extension gaps and full range of motion including extension to 0 and flexion to 140 the trial components after having been taken to recovery range of motion was subsequently removed meticulous hemostasis was obtained and maintained subsequently a knee block injection of joint cocktail including ropivacaine 0.5% 150 mg. Bupivacaine 0.5 % epinephrine 1-200,030 mL's toradol 30 mg dexamethasone 4 mg ketamine 10 mg clonidine 100 micrograms normal saline solution 30 mg was infiltrated into the soft tissues of the posterior knee medial lateral gutters and periosteal synovium special attention was paid to protect neurovascular structures at all times subsequently trial components having been removed the knee was irrigated with sterile saline solution. debris was removed the proximal tibia was subsequently prepared and was made ready for the placement of the tibial component tibial component was also cemented and tamped into position the femoral component was subsequently placed and cemented in the position the patellar component was subsequently cemented in position because hemostasis once again obtained and maintained wound having been thoroughly irrigated with debridement and debridement lavage was performed as well as a medial parapatellar incision closed with #1 Vicryl in interrupted fashion subcutaneous was closed with #2 Vicryl skin was closed with skin clips. PA-C was necessary for prepping and drapping as well as wound closure of deep fascia Sub cutaneous tissue and skin and was necessary for the case. A sterile compressive dressing was placed patient was taken to recovery in stable condition of report dictated by Syed I attest to the content of the Intraoperative Record and any orders documented therein. Any exceptions are noted below. I attest to the content of the Intraoperative Record and any orders documented therein. Any exceptions are noted below.
[2017-03-15] MEDS ORDERED: MoRPHine SULFATE 4 MG/ML 1 ML CARP\\VIAL IV PRN (10:15)
[2017-03-15] MEDS ORDERED: ALPRAZOLAM 0.25 MG TAB PO PRN (10:15)
[2017-03-15] MEDS ORDERED: ALUMINUM/MAGNESIUM/SIMETH (MAALOX MAX) 30 ML UDC PO PRN (10:15)
[2017-03-15] MEDS ORDERED: MoRPHine SULFATE 2 MG/ML CARP IV PRN (10:15)
[2017-03-15] MEDS ORDERED: MAGNESIUM HYDROXIDE SUSP 30 ML UDC PO PRN (10:15)
--- NOTE | 2017-03-15 10:53 | DIAGNOSTIC IMAGING REPORT ---
R KNEE 1 OR 2 VIEWS ROUTINE CLINICAL HISTORY: AP/LATERAL IN PACU RIGHT KNEE postoperative COMPARISON: None. DISCUSSION: Patient is status post total right knee arthroplasty. Good contact between prosthetic and underlying bone. Surgical drains are in position. Expected postoperative soft tissue change. IMPRESSION: Anatomic alignment status post right knee arthroplasty The above report was generated using voice recognition software. It may contain grammatical, syntax or spelling errors. Electronically signed by: Beau Quiñonez M.D. 03/15/2017 10:52 AM Dictated Date/Time: 03/15/2017 10:51 AM
--- NOTE | 2017-03-15 11:10 | Anesthesiology Progress Note ---
Anesthesia Post Op Note Date & Time Mar 15, 2017 at 11:10 Vital Signs Pain Intensity: 0 Vital Signs Past 12 Hours Date Time Temp Pulse Resp B/P (MAP) Pulse Ox O2 Delivery O2 Flow Rate FiO2 03/15/17 10:43 80 15 97 03/15/17 10:43 81 15 03/15/17 10:41 114/69 03/15/17 10:38 79 20 03/15/17 10:38 78 20 97 03/15/17 10:36 107/56 03/15/17 10:33 81 16 03/15/17 10:33 82 16 96 03/15/17 10:31 101/59 03/15/17 10:28 82 13 97 03/15/17 10:28 84 13 03/15/17 10:26 103/62 03/15/17 10:23 85 15 03/15/17 10:23 84 15 96 03/15/17 10:21 101/56 03/15/17 10:18 83 14 03/15/17 10:18 83 14 97 03/15/17 10:16 96/57 03/15/17 10:16 99/58 03/15/17 10:14 93/61 03/15/17 10:13 85 97 03/15/17 10:13 85 03/15/17 10:13 36.0 84 16 99/58 (69) 97 Oxymask 10 03/15/17 06:45 36.4 79 20 124/73 97 Room Air Notes Mental Status: alert / awake / arousable, participated in evaluation Pt Amnestic to Procedure: Yes Nausea / Vomiting: adequately controlled Pain: adequately controlled Airway Patency, RR, SpO2: stable & adequate BP & HR: stable & adequate Hydration State: stable & adequate Neuraxial Anesthesia: was administered, sensory block is resolving Anesthetic Complications: no major complications apparent
[2017-03-15] MEDS: FERROUS GLUCONATE 324 MG TAB PO SCH ×2 (12:30→17:59)
[2017-03-15] MEDS: D5W AND 1/2NSS + 20MEQ KCL 1,000 ML IV SCH ×2 (13:01→22:34)
[2017-03-15] MEDS: KETOROLAC TROMETHAMINE 30 MG/ML VIAL IV. SCH ×2 (13:03→20:50)
[2017-03-15] MEDS: ACETAMINOPHEN 500 MG TAB PO SCH (16:22)
[2017-03-15] MEDS ORDERED: VANCOMYCIN INJ 1,250 MG in SODIUM CHLORIDE 0.9% 250ML 250 ML IV SCH (20:00)
[2017-03-15] MEDS: RANITIDINE HCL 150 MG TAB PO SCH (20:52)
[2017-03-15] MEDS: SENNA 8.6 MG TAB PO SCH (20:52)
[2017-03-15] MEDS: DOCUSATE SODIUM 100 MG CAP PO SCH (20:52)
[2017-03-15] MEDS: ASPIRIN 81 MG ECTAB PO SCH (20:52)
[2017-03-16] MEDS: ACETAMINOPHEN 500 MG TAB PO SCH ×4 (00:09→23:36)
[2017-03-16] MEDS: KETOROLAC TROMETHAMINE 30 MG/ML VIAL IV. SCH ×2 (02:32→08:40)
[2017-03-16 04:00] VITALS: BP 97/60; PULSE 78; TEMP 36.5; O2SAT 96
[2017-03-16 05:42] LABS: HEMATOCRIT 32.3 % (37-47); HEMOGLOBIN 10.6 g/dL (12.0-16.0); MEAN CELL VOLUME 96.4 fL (80-100); MEAN CORPUSCULAR HEMOGLOBIN 31.6 pg (25-34); MEAN CORPUSCULAR HGB CONC 32.8 g/dl (32-36); MEAN PLATELET VOLUME 9.7 fL (7.4-10.4); PLATELET COUNT 241 K/uL (130-400); RED CELL DISTRIBUTION WIDTH CV 14.6 % (11.5-14.5); RED CELL DISTRIBUTION WIDTH SD 51.6 fL (36.4-46.3); WHITE BLOOD COUNT 10.58 K/uL (4.8-10.8)
[2017-03-16 06:17] LABS: CALCIUM 8.3 mg/dl (8.5-10.1); CREATININE 0.76 mg/dl (0.60-1.20); POTASSIUM 4.5 mmol/L (3.5-5.1)
[2017-03-16 07:10] VITALS: BP 93/61; PULSE 75; TEMP 36.5; O2SAT 95
--- NOTE | 2017-03-16 08:04 | Orthopedic Progress Note ---
Orthopedic Progress Note Date of Service Mar 16, 2017. Subjective Post OP Day: 1 Reports: feeling well, Denies: chest pain, SOB, nausea / vomiting, light headedness, calf pain Objective calves soft nontender, N/V intact, capillary refill less than 2 sec., dressing C /D/I, A&O x3, toes mobile, hemovac drainage (105/200 cc per shift) Date Time Temp Pulse Resp B/P (MAP) Pulse Ox O2 Delivery O2 Flow Rate FiO2 03/16/17 07:10 36.5 75 16 93/61 (72) 95 Room Air 03/16/17 04:00 36.5 78 16 97/60 (72) 96 Room Air 03/16/17 00:15 Room Air 03/15/17 23:50 36.4 87 16 92/55 (67) 94 Room Air 03/15/17 20:39 36.5 79 18 87/55 (66) 95 Room Air 03/15/17 16:35 Room Air 03/15/17 15:48 36.4 69 18 99/64 (76) 95 Room Air 03/15/17 14:30 36.5 73 16 122/76 (91) 100 Nasal Cannula 2.0 03/15/17 13:30 36.5 72 19 108/74 (85) 99 Nasal Cannula 2.0 03/15/17 13:16 36.4 70 17 118/74 (89) 98 Nasal Cannula 2.0 03/15/17 12:03 36.3 70 19 114/75 (88) 97 2.0 03/15/17 11:30 36.5 75 14 120/72 (88) 93 Nasal Cannula 2.0 03/15/17 11:30 Nasal Cannula 2.0 03/15/17 11:30 93 Nasal Cannula 2.0 03/15/17 11:22 72 12 03/15/17 11:22 72 12 97 03/15/17 11:21 106/65 03/15/17 11:17 73 15 03/15/17 11:17 74 15 96 03/15/17 11:16 111/70 03/15/17 11:15 36.7 77 16 111/70 (77) 96 Nasal Cannula 2 03/15/17 11:12 70 12 94 03/15/17 11:12 69 12 03/15/17 11:11 105/72 1/3/18 11:09 77 20 96 03/15/17 11:09 79 20 03/15/17 11:06 118/67 03/15/17 11:04 75 12 97 03/15/17 11:04 74 12 03/15/17 11:01 111/70 03/15/17 10:59 71 14 97 03/15/17 10:59 71 14 03/15/17 10:56 116/80 03/15/17 10:54 76 13 96 03/15/17 10:54 76 13 03/15/17 10:51 108/64 03/15/17 10:49 71 15 98 03/15/17 10:49 71 15 03/15/17 10:46 108/64 03/15/17 10:44 80 15 97 03/15/17 10:44 79 15 03/15/17 10:43 80 15 97 03/15/17 10:43 81 15 03/15/17 10:41 114/69 03/15/17 10:38 79 20 03/15/17 10:38 78 20 97 03/15/17 10:36 107/56 03/15/17 10:33 81 16 03/15/17 10:33 82 16 96 03/15/17 10:31 101/59 03/15/17 10:28 82 13 97 03/15/17 10:28 84 13 03/15/17 10:26 103/62 03/15/17 10:23 85 15 03/15/17 10:23 84 15 96 03/15/17 10:21 101/56 03/15/17 10:18 83 14 03/15/17 10:18 83 14 97 03/15/17 10:16 96/57 03/15/17 10:16 99/58 03/15/17 10:14 93/61 03/15/17 10:13 85 97 03/15/17 10:13 85 03/15/17 10:13 36.0 84 16 99/58 (69) 97 Oxymask 10 Laboratory Results 24 Hours: Test 03/16/17 05:30 Hematocrit 32.3 % Hemoglobin 10.6 g/dL Assessment & Plan Assessment: POD#1 sp right TKA Plan: PT/OT DVT proph- ASA 81mg bid Pain management- Oxy, Tylenol DC planning- home with , likely Monday
[2017-03-16] MEDS: MULTIVITAMIN TAB PO SCH (08:39)
[2017-03-16] MEDS: RANITIDINE HCL 150 MG TAB PO SCH ×2 (08:39→21:04)
[2017-03-16] MEDS: DOCUSATE SODIUM 100 MG CAP PO SCH ×2 (08:40→20:23)
[2017-03-16] MEDS: ASPIRIN 81 MG ECTAB PO SCH ×2 (08:40→21:04)
[2017-03-16] MEDS: FERROUS GLUCONATE 324 MG TAB PO SCH ×3 (08:40→17:45)
--- NOTE | 2017-03-16 08:48 | Anesthesiology Progress Note ---
Anesthesia Post Op Note Date & Time Mar 16, 2017 at 08:47 Vital Signs Pain Intensity: 2.0 Vital Signs Past 12 Hours Date Time Temp Pulse Resp B/P (MAP) Pulse Ox O2 Delivery O2 Flow Rate FiO2 03/16/17 07:40 Room Air 03/16/17 07:10 36.5 75 16 93/61 (72) 95 Room Air 03/16/17 04:00 36.5 78 16 97/60 (72) 96 Room Air 03/16/17 00:15 Room Air 03/15/17 23:50 36.4 87 16 92/55 (67) 94 Room Air Notes Mental Status: alert / awake / arousable, participated in evaluation Pt Amnestic to Procedure: Yes Nausea / Vomiting: adequately controlled Pain: adequately controlled Airway Patency, RR, SpO2: stable & adequate BP & HR: stable & adequate Hydration State: stable & adequate Anesthetic Complications: no major complications apparent
[2017-03-16] MEDS: D5W AND 1/2NSS + 20MEQ KCL 1,000 ML IV SCH (10:12)
[2017-03-16 11:15] VITALS: BP 114/73; PULSE 77; TEMP 36.5; O2SAT 94
[2017-03-16 11:59] VITALS: BP 101/66; PULSE 80; O2SAT 97
[2017-03-16] MEDS ORDERED: NURSING VERBAL MED ORDER ONE (13:15)
[2017-03-16] MEDS ORDERED: BISACODYL 10 MG SUPP PR PRN (13:30)
[2017-03-16] MEDS ORDERED: SOD PHOSPHATE/SOD BIPHOSPHATE ENEMA 132 ML BTL PR PRN (13:30)
[2017-03-16] MEDS: TRAMADOL HCL 50 MG TAB PO PRN (14:02)
[2017-03-16 15:22] VITALS: BP 112/70; PULSE 86; TEMP 36.6; O2SAT 95
[2017-03-16] MEDS: OXYCODONE HCL IR 5 MG TAB (IMMEDIATE RELEASE) PO PRN ×3 (15:56→23:36)
--- NOTE | 2017-03-16 16:30 | Discharge Instructions ---
Discharge Instructions Date of Service Mar 16, 2017. Admission Reason for Admission: Right Knee Osteoarthritis Discharge Discharge Diagnosis / Problem: right total knee replacement Discharge Goals Goal(s): Decrease discomfort, Improve function, Increase independence Activity Recommendations Activity Limitations: as noted below Weightbearing Status: Right weightbearing (as tolerated) . Instructions / Follow-Up Instructions / Follow-Up ACTIVITY RECOMMENDATIONS: SELF CARE INSTRUCTIONS AFTER TOTAL KNEE REPLACEMENT A. You may need to continue a physical therapy program after discharge from the hospital. There are several options available to you. Your doctor will assist you in selecting the best one for you. 1. An out-patient facility 2 to 3 times a week for therapy or home therapy. 2. Continue working on all exercises taught to you in the hospital. Your goals should be to increase bending of your knee to 90 degrees and beyond and to fully straighten your knee. B. You may progress at your own pace from walking with a walker or crutches to a cane; then to no assistive devices. C. Make walking a part of your daily routine. Be up as much as comfortable with rest periods throughout the day. Rest with leg elevation is very important. Use the ice wrap frequently for the first 3-4 weeks. D. There are no restrictions on activities. You may ride in a car, shop, participate in tunnel drier operator and all social activities. E. Wear the long elastic stockings (YVROSE hose) 20 hours a day for 2 weeks after surgery. They can be removed several times a day for laundering and for a bath. F. You may shower, no tub baths until cleared by your doctor. SPECIAL CARE INSTRUCTIONS: VERY IMPORTANT TO READ AND REVIEW A. There are a few signs you need to watch for after you are home. Call [facility] if you notice any of the followin. Increased severe knee pain. Some pain is expected especially when you exercise. 2. Increased swelling in your leg or knee; pain or swelling of the calf muscle in either lower leg. 3. Any fluid drainage from the incision. 4. Shortness of breath or chest pain. B. Please call [facility] at if you have any concerns or questions about your operation or recovery. The doctor or his nurse will return your call promptly. C. You must take antibiotics before dental work, bladder, bowel or other surgery. Your doctor will provide you with a permanent care to carry describing this precaution. IMPORTANT: * REMEMBER TO TAKE ASPIRIN, 81 MG, TWICE DAILY FOR 4 WEEKS UNLESS OTHERWISE DIRECTED. THIS IS YOUR BLOOD THINNER. * HIGH RISK PATIENTS MAY BE PRESCRIBED A STRONGER BLOOD THINNER. THIS WILL BE PROVIDED AT DISCHARGE. * CALL IF INCREASED PAIN, REDNESS, DRAINAGE OR FEVER GREATER THAT 101. * WEAR YVROSE HOSE 20 HOURS PER DAY FOR 2 WEEKS. * DERMABOND Prineo- This is a mesh tape dressing that is covered with glue. It should remain in place until the incision is properly healed, usually 10-14 days. This dressing is designed to naturally slough off. You may trim the excess mesh tape as it peels off. Incision may be briefly wet in a shower. Dry immediately by blotting with a clean, dry towel. Do not bath or swim until instructed by your doctor. Do not scratch, rub, or pick at the dressing. Do not apply any topical ointments or lotions until dressing is completely removed and/or instructed by your doctor. There may be a small piece of suture material at one end of your incision. Do not pull or trim this. If it is bothersome or catching on clothing, you may cover it with a band-aid. FOLLOW UP VISIT: If appointment is not already scheduled: Please call [facility] to make a follow-up appointment for 2 weeks after your surgery at . Current Hospital Diet Patient's current hospital diet: Regular Diet Discharge Diet Recommended Diet: Regular Diet Procedures Procedures Performed: Right total knee arthroplasty utilizing Pradhan & Nephew journey 2 patient matched total knee arthroplasty 6 femur 5 tibia 13 Tala 32 oval patella Pending Studies Studies pending at discharge: no Medical Emergencies . Who to Call and When: Medical Emergencies: If at any time you feel your situation is an emergency, please call 911 immediately. . Non-Emergent Contact Non-Emergency issues call your: Primary Care Provider, Surgeon . "Provider Documentation" section prepared by Beau Hunt. . VTE Core Measure Inpt VTE Proph given/why not?: Other Anticoagulation (ASA 81mg po bid x 1 month ), T.E.D. Bridget, SCD's [place] Drug Monitoring Program Search Results: patient reviewed within database, no issues identified
[2017-03-16] MEDS: SENNA 8.6 MG TAB PO SCH (20:23)
[2017-03-16 23:00] VITALS: BP 102/61; PULSE 80; TEMP 36.8; O2SAT 96
[2017-03-17] MEDS: TRAMADOL HCL 50 MG TAB PO PRN ×3 (03:04→12:54)
[2017-03-17] MEDS: ONDANSETRON INJ 2 MG/ML 2 ML VIAL IV PRN ×2 (05:22→12:54)
[2017-03-17 06:06] VITALS: BP 106/60; PULSE 80; TEMP 36.8; O2SAT 95
--- NOTE | 2017-03-17 07:20 | Orthopedic Progress Note ---
Orthopedic Progress Note Date of Service Mar 17, 2017. Subjective Post OP Day: 2 Reports: feeling well, pain controlled w PO medications, Denies: complaints, chest pain, SOB, nausea / vomiting, light headedness, calf pain Objective calves soft nontender, N/V intact, capillary refill less than 2 sec., incision C /D/I, A&O x3, toes mobile Date Time Temp Pulse Resp B/P (MAP) Pulse Ox O2 Delivery O2 Flow Rate FiO2 03/17/17 06:06 36.8 80 16 106/60 (75) 95 Room Air 03/16/17 23:30 Room Air 03/16/17 23:00 36.8 80 16 102/61 (75) 96 03/16/17 15:22 36.6 86 16 112/70 (84) 95 Room Air 03/16/17 15:00 Room Air 03/16/17 11:59 80 97 03/16/17 11:15 36.5 77 16 114/73 (87) 94 Room Air 03/16/17 07:40 Room Air Assessment & Plan Assessment: POD#2 sp right TKA Plan: PT/OT DVT proph- ASA 81mg bid Pain management- Oxy, Tylenol DC planning- home with HH, d/c home after PT today Discharge Planning Discharge Planning: home with home health DVT Prophylaxis: TEDs, SCDs, ASA
[2017-03-17] MEDS: MULTIVITAMIN TAB PO SCH (07:24)
[2017-03-17] MEDS: DOCUSATE SODIUM 100 MG CAP PO SCH (07:24)
[2017-03-17] MEDS: FERROUS GLUCONATE 324 MG TAB PO SCH ×2 (07:24→12:23)
[2017-03-17] MEDS ORDERED: ULT50X PO (07:25)
[2017-03-17] MEDS ORDERED: RXC5 PO (07:25)
[2017-03-17] MEDS ORDERED: CLC100 PO (07:25)
[2017-03-17] MEDS ORDERED: ONDA8TAB6 PO (07:25)
[2017-03-17] MEDS: ACETAMINOPHEN 500 MG TAB PO SCH (07:25)
[2017-03-17] MEDS ORDERED: ACET-24 PO (07:25)
[2017-03-17] MEDS ORDERED: ASPEC81 PO (07:25)
[2017-03-17] MEDS: ASPIRIN 81 MG ECTAB PO SCH (07:28)
[2017-03-17] MEDS: RANITIDINE HCL 150 MG TAB PO SCH (07:29)
[2017-03-17 07:30] VITALS: BP 106/60; PULSE 80; TEMP 36.8; O2SAT 95
[2017-03-17 07:40] VITALS: BP 100/66; PULSE 82; TEMP 36.6; O2SAT 94
[2017-03-17 08:55] VITALS: BP 102/55
[2017-03-17 10:20] VITALS: O2SAT 94
[2017-03-17 12:12] VITALS: BP 108/70; PULSE 80; TEMP 36.8; O2SAT 94
--- NOTE | 2017-03-20 13:56 | Discharge Summary ---
Orthopedic Discharge Summary Admission Date/Reason Mar 15, 2017 at 10:21 Right Knee Osteoarthritis. Discharge Date/Disposition Mar 17, 2017 Home with services Diagnosis Principal Diagnosis: Right Knee Djd Secondary Diagnoses/Problems: Mitral valve prolapse Procedure(s) Performed Right TKA Medication Reconciliation New Medications: Ondansetron Hcl (Zofran) 8 Mg Tab 8 MG PO Q8 PRN for Nausea, #20 TAB Acetaminophen (Sb Non-Aspirin Extra Stre) 500 Mg Tab 1000 MG PO Q8H, #60 TAB Aspirin (Aspirin EC Low Dose) 81 Mg Ectab 81 MG PO BID for 30 Days, #60 TAB Docusate Sodium (Docusate Sodium) 100 Mg Cap 100 MG PO BID for 10 Days, #20 CAP Oxycodone HCl (Oxycodone HCl) 5 Mg Tab 5-10 MG PO Q4H PRN for Pain, #60 TAB Tramadol HCl (Tramadol HCl) 50 Mg Tab 50-100 MG PO Q4H PRN for Pain, #60 TAB Continued Medications: Alprazolam (Xanax) 0.5 Mg Tab 0.25 MG PO UD PRN for Sleep, TAB Fesoterodine Fumarate (Toviaz) 8 Mg Tab 1 TAB PO QAM for 90 Days, #90 TAB 3 Refills Discontinued Medications: Acetaminophen (Tylenol) 500 Mg Tab 2 TAB PO Q6 PRN for Pain for 7 Days, #56 TAB Ibuprofen (Motrin) 800 Mg Tab 800 MG PO UD PRN for Pain, TAB Saccharomyces Boulardii (Florastor) 250 Mg Cap 1 CAP PO QAM Admission Physical Exam As per Admitting History & Physical. Hospital Course The Patient had an uneventful hospital course. Labs remained stable- lowest hemoglobin recorded: 10.6 . Pain controlled on oral medications. Participated in PT with ambulation distance of 150 feet. ROM of operative knee reached 95 degrees. Drainage output totaled 755 cc prior to discontinuation. Patient did not have a reported bowel movement. Incision remained clean/dry/intact. DVT prophylaxis with Aspirin EC 81mg BID x 30 days/Kevin stockings. Patient discharged home with Home Health Services in stable condition. Please refer to daily progress notes for further details. Discharge Instructions Please refer to the electronic Patient Visit Report (Discharge Instructions) for additional information.
== END 2017-03-17 14:00 | disposition home health service (06) | DRG 470 ==
LOC: C.ACU 05:25 → C.3E 10:21 → ENRESERV 11:02
PROVIDERS: ADMIT Orthopaedic Surgery; ATTEND Orthopaedic Surgery
PROC: 0SRC0J9 Replacement of Right Knee Joint with Synthetic Substitute, Cemented, Open Approach (ICD-10-PCS; principal; 2017-03-15 08:15)
DX: M17.11 Unilateral primary osteoarthritis, right knee (principal); I34.1 Nonrheumatic mitral (valve) prolapse; Z96.652 Presence of left artificial knee joint; Z88.0 Allergy status to penicillin; Z88.2 Allergy status to sulfonamides